=== PATIENT | female | born 1985 | race African-American/Black ===

== ENCOUNTER 2025-07-09 09:54 | Emergency (ER) | payer MEDICARE ==
[~2025-07-09] VITALS: Ht 165.1 cm; Wt 92.1 kg
[2025-07-09 10:12] VITALS: TEMP 98
[2025-07-09] MEDS: ONDANSETRON HCL 4 MG ORAL DISINTEGRATING TAB PO ONE (11:21)
[2025-07-09] MEDS: HYDROCODONE/APAP 7.5MG-325MG 1 EA TAB PO ONE (11:21)
[2025-07-09 11:34] LABS: LEUKOCYTE ESTERASE ,URINE TRACE (NEGATIVE); PROTEIN,URINE DIPSTICK 2+ (NEGATIVE); URINE UROBILINOGEN 1 mg/dL (0.2 - 1)
[2025-07-09 11:46] LABS: EPITHELIAL CELLS,URINE MANY /LPF
[2025-07-09 11:48] LABS: PREGNANCY TEST, URINE NEGATIVE (NEGATIVE)
[2025-07-09] MEDS ORDERED: FLUCONAZOLE150 MG PO (12:12)
[2025-07-09] MEDS ORDERED: CEFDINIR300 MG PO (12:12)
[2025-07-09 12:28] VITALS: PULSE 88; RESP 20; O2SAT 100
== END 2025-07-09 12:34 | disposition home or self-care (01) ==
LOC: ER 10:25
DX: R30.0 Dysuria (principal); N39.0 Urinary tract infection, site not specified; I10 Essential (primary) hypertension; E11.9 Type 2 diabetes mellitus without complications; I50.9 Heart failure, unspecified
CPT/HCPCS: 81001; 81025; 87086; 99283; Q0162